=== PATIENT | female | born 1935 | race Caucasian/White ===

== ENCOUNTER → 2017-06-01 | Outpatient (CLI) | payer MEDICARE, OTHER, MEDICAID ==
[~2017-06-01] MED LIST: ATENOLOL25 M1 PO; CLOPIDOGREL75 M2 PO; DARVOCET-N 1001 EACH PO; FUROSEMIDE 20MG20 MG PO; ISOSORBIDE MONO30 MG PO; TAMIFLU 75MG CA75 MG PO; TRANDOLAPRIL4 MG PO
--- NOTE | 2017-06-01 11:13 | RADIOLOGY REPORT PS360 ---
BONE DENSITOMETRY(HIP:LT SPINE HISTORY: POST MENOPAUSAL ORDERING PHYSICIAN: Araceli Edwards MD PATIENT AGE: 81 years COMPARISON: None FINDINGS: The BMD measured at the left femoral neck is 0.679 g/cm squared with a T score of -2.6. This is considered osteoporosis according to the World Health Organization criteria. Fracture risk is high. Treatment should be started if not already prescribed. The L1 L4 density has a T score of 0.4. IMPRESSION: Osteoporosis. Recommend follow-up exam May 2018 to monitor treatment
--- NOTE | 2017-06-11 11:27 | RADIOLOGY REPORT PS360 ---
DIG MAMM-SCREEN MINDA W/CAD CAD Screening COMPARISON: None, previous mammograms cannot be located INDICATION: There is no personal or family history of breast cancer. TECHNIQUE: Standard CC and MLO images were obtained. R2 CAD reviewed. FINDINGS: Scattered fiber glandular densities are seen in both breast. There is moderate arterial calcination in each breast. There is a mole marker left breast. There are couple benign-appearing calcination is right breast. There is no suspicious lesion and there are no suspicious microcalcifications. IMPRESSION: Fibrofatty parenchyma with no suspicious lesion seen recommend yearly follow-up BI-RADS CATEGORY: 2_Benign RECOMMENDED FOLLOWUP: 12M 12 MONTH FOLLOW-UP (A letter has been sent to the patient regarding results of the study.)
== END ==
LOC: RAD 09:35
DX: Z12.31 Encounter for screening mammogram for malignant neoplasm of breast (principal); Z78.0 Asymptomatic menopausal state; Z13.820 Encounter for screening for osteoporosis
CPT/HCPCS: G0202